=== PATIENT | male | born 1950 | race Caucasian/White ===

== ENCOUNTER 2022-07-30 17:57 | Emergency (ER) | payer OTHER, SELFPAY ==
[2022-07-30 18:05] VITALS: BP 154/70; PULSE 70; O2SAT 95; BMI 30.4
--- NOTE | 2022-07-30 18:23 | ED.WOUNDLAC ---
HPI - Wound/Laceration General Chief Complaint: Laceration/Wound Stated Complaint: Head Laceration Time Seen by Provider: 07/30/22 18:03 History of Present Illness HPI narrative: This 9-year-old male comes in with a laceration to the occipital portion of his head. This occurred just prior to arrival. He tripped and fell backwards at home and hit his head. He has a 3 cm linear laceration in the occipital region. He did not have loss of consciousness. He does not complain of headache or any other injury. He was able to get up and ambulate here. He is uncertain of his Related Data Home Medications Medication Instructions Recorded Confirmed No Known Home Medications 07/30/22 07/30/22 Allergies Allergy/AdvReac Type Severity Reaction Status Date / Time No Known Drug Allergies Allergy Verified 07/30/22 18:08 Review of Systems Status of ROS: Reports: 10 or more systems reviewed and unremarkable except as noted in History and below Narrative: Constitutional: No fevers, no weight gain or loss. Eyes: No discharge. No vision changes. HENT: No congestion, no sore throat, no ear pain. Cardiovascular: No chest pain, no palpitations. Respiratory: No shortness of breath, no wheezes, no cough. Gastrointestinal: No abdominal pain, no vomiting, no diarrhea. Genitourinary: No dysuria, no hematuria. Musculoskeletal: Normal range of motion. Skin: No rashes, no pruritis. Scalp laceration as described above. Neurological: No dizziness, weakness, sensory change, speech change. Endo/Heme/Allergies: No bruising or bleeding. No polydipsia. Pysch: no suicidality, no anxiety, no insomnia. All other systems reviewed and are negative. PFSH PFSH Social History Smoking Status: Never smoker How often do you have a drink containing alcohol: never How often do you have six or more drinks on one occasion: Never AUDIT-C Alcohol total score: 0 Non-prescribed substance use: denies use Exam Narrative: Exam Narrative: Constitutional: Well-developed, well-nourished, no acute distress. HEENT: 3 cm linear laceration in the occipital region of the scalp. There is no underlying hematoma. Bleeding is stopped currently. Neck: Normal range of motion. Nontender. Supple. Heart: Intact distal pulses. Lungs: No chest discomfort. No wheezes, rhonchi, or rales. Abdomen: Nontender. Back: Normal range of motion. Extremities: Normal range of motion. No injury. Skin: Intact. No rash. Warm. No erythema or pallor. Neurologic: No altered sensation. No weakness. Alert and oriented. Psychiatric: No suicidality. No anxiety or depression. No insomnia. Nursing notes and vitals signs are reviewed. Const: Vital Signs, click to edit/add: Vital Signs - 24 hr 07/30/22 18:05 Pulse Rate [Pulse Oximeter] 70 Blood Pressure [Le ft Upper Arm] 154/70 H Pulse Oximetry 95 Oxygen Delivery Me thod Room Air Course Vital Signs Vital signs: Initial Vital Signs Pulse Rate 70 07/30/22 18:05 Blood Pressure 154/70 H 07/30/22 18:05 Blood Pressure Mean 98 07/30/22 18:05 Blood Pressure Position Supine 07/30/22 18:05 Pulse Oximetry 95 07/30/22 18:05 Oxygen Delivery Method 07/30/22 18:05 Vital Signs Pulse Rate 70 07/30/22 18:05 Blood Pressure 154/70 H 07/30/22 18:05 Pulse Oximetry 95 07/30/22 18:05 Oxygen Delivery Method 07/30/22 18:05 Pulse Rate 70 07/30/22 18:05 Blood Pressure 154/70 H 07/30/22 18:05 Pulse Oximetry 95 07/30/22 18:05 Oxygen Delivery Method 07/30/22 18:05 MDM - Wound/Laceration MDM Narrative Medical decision making narrative: This patient did not have loss of consciousness and is not displaying any triggers that would indicate need for imaging studies. I did describe options for wound repair and the patient elected to have Dermabond applied. The wound was cleansed and Dermabond was applied to approximate the wound edges. This brought about very good results. Instructions were given regarding wound care. I did recommend a tetanus vaccination. The patient states that he wants to go to his primary physician to take care of this need. Discharge Plan Discharge Clinical Impression: Laceration Patient Disposition: Home, Self-Care Condition: Stable Additional Instructions: Keep wound clean and dry. Follow up with MD to update tetanus vaccination. Return if worsening. Prescriptions: No Action No Known Home Medications Follow Up/Referrals: Jacoby Sanchez MD [Primary Care Provider] - Stand Alone Forms: [facility] Info Instructions
== END 2022-07-30 18:39 | disposition home or self-care (01) ==
LOC: ED 18:36
PROVIDERS: Emergency Provider Emergency Medicine Emergency Medical Services; PCP Family Medicine
DX: S01.01XA Laceration without foreign body of scalp, initial encounter (principal); W01.10XA Fall on same level from slipping, tripping and stumbling with subsequent striking against unspecified object, initial encounter
CPT/HCPCS: 12001; 99283; 99284